=== PATIENT | male | born 1955 | race Caucasian/White ===

== ENCOUNTER → 2017-10-26 08:56 | Outpatient (CLI) | payer OTHER, SELFPAY ==
[2017-10-26 10:13] LABS: Absolute Lymphocyte Count 1.33 X10^3/ul (0.83-4.51); Absolute Neutrophil Count 2.1 X10^3/uL (2.0-7.7); Basophil# 0.03 X10^3/uL; Basophil% 0.7 % (0-1); Eosinophil# 0.17 X10^3/uL; Eosinophils% 4.2 % (0-5); Hemoglobin 14.2 g/dl (13.0-16.5); Lymphocyte # 1.33 X10^3/ul (4.0); Lymphocyte % 32.6 % (19-41); Mean Corp Hgb Conc 33.8 g/gl (32-36); Mean Corpuscular Volume 91.7 fL (80-94); Mean Platelet Vol. 9.5 fl (6.2-12.0); Monocyte# 0.46 X10^3/uL; Monocyte% 11.3 % (0-10); Neutrophil # 2.09 X10^3/uL (2.7-7.7); Neutrophil % 51.2 % (47-70); Platelet Count 297 K/mm3 (150-450); RBC Distribution Width CV 13.2 % (11.6-14.6); RBC Distribution Width SD 43.8 fl (35.1-43.9); Red Blood Count 4.58 M/mm3 (4.6-6.2); White Blood Count 4.1 K/mm3 (4.4-11.0)
[2017-10-26 10:15] LABS: POSITIVE COUNT NO; POSITIVE DIFFERENTIAL NO; POSITIVE MORPHOLOGY NO
[2017-10-26 10:37] LABS: Iron 100 ug/dL (65-175)
[2017-10-26 10:40] LABS: Ferritin 34 ng/mL (26-388)
== END ==
PROVIDERS: Family Provider Family Medicine; PCP Family Medicine; Visit Provider Internal Medicine Medical Oncology
DX: D50.9 Iron deficiency anemia, unspecified (principal)
CPT/HCPCS: 36415; 82728; 83540; 85025

== ENCOUNTER → 2018-03-25 08:56 | Outpatient (CLI) | payer OTHER, SELFPAY ==
[2018-03-25 12:57] LABS: Vitamin B12 365 pg/mL (211-911)
[2018-03-25 13:14] LABS: AST(SGOT) 26 U/L (15-37); Alanine Aminotransfer ALT/SGPT 33 U/L (16-61); Albumin, Serum 3.7 g/dL (3.2-5.0); Alkaline Phosphatase 58 U/L (45-117); Anion Gap 8 (5-15); BUN 20 mg/dL (7-18); BUN/Creat Ratio 24.8 RATIO (10-20); Chloride 102 mmol/L (98-107); Cholesterol 158 mg/dL (200); Creatinine, Serum 0.81 mg/dL (0.70-1.30); EST Glomerular Filtration Rate 103 mL/min (>60); Est Glom Filt Rate - Afr Amer 125 mL/min (>60); Globulin 3.7 g/dL (2.2-4.2); Glucose 88 mg/dL (74-106); High Density Lipoprotein 41 mg/dL; PSA,Total - Annual Screen 2.68 ng/mL (0.00-4.00); Potassium 3.7 mmol/L (3.5-5.1); Protein, Total 7.4 g/dL (6.4-8.2); Sodium Level 138 mmol/L (136-145); T4 Free Direct 0.96 ng/dL (0.76-1.46); Thyroid Stim Hormone (TSH) 9.84 uIU/mL (0.358-3.74); Triglycerides 82 mg/dL; Very Low Density Lipoprotein 16 mg/dL (5-40)
== END ==
PROVIDERS: Family Provider Family Medicine; PCP Family Medicine; Visit Provider Family Medicine
DX: Z00.01 Encounter for general adult medical examination with abnormal findings (principal); E03.9 Hypothyroidism, unspecified; G25.81 Restless legs syndrome; Z12.5 Encounter for screening for malignant neoplasm of prostate; Z51.81 Encounter for therapeutic drug level monitoring
CPT/HCPCS: 36415; 80053; 80061; 82607; 84153; 84439; 84443; G0103

== ENCOUNTER → 2018-06-23 10:38 | Outpatient (CLI) | payer OTHER, SELFPAY ==
[2018-06-23 16:00] LABS: Free T3 3.3 pg/mL (2.18-3.98); Thyroid Stim Hormone (TSH) 0.76 uIU/mL (0.358-3.74)
== END ==
PROVIDERS: Family Provider Family Medicine; PCP Family Medicine; Visit Provider Family Medicine
DX: E03.9 Hypothyroidism, unspecified (principal); E53.8 Deficiency of other specified B group vitamins; K90.0 Celiac disease; I10 Essential (primary) hypertension
CPT/HCPCS: 36415; 84439; 84443; 84481

== ENCOUNTER → 2018-08-23 09:05 | Outpatient (CLI) | payer OTHER, SELFPAY ==
[2018-08-23 10:17] LABS: Anion Gap 9 (5-15); BUN 19 mg/dL (7-18); BUN/Creat Ratio 20.2 RATIO (10-20); Calcium,Total 8.3 mg/dL (8.5-10.1); Chloride 101 mmol/L (98-107); Creatinine, Serum 0.94 mg/dL (0.70-1.30); EST Glomerular Filtration Rate 86 mL/min (>60); Est Glom Filt Rate - Afr Amer 104 mL/min (>60); Glucose 99 mg/dL (74-106); Potassium 3.7 mmol/L (3.5-5.1); Sodium Level 141 mmol/L (136-145)
== END ==
PROVIDERS: Family Provider Family Medicine; PCP Family Medicine; Referring Provider Family Medicine; Visit Provider Family Medicine
DX: Z51.81 Encounter for therapeutic drug level monitoring (principal)
CPT/HCPCS: 36415; 80048

== ENCOUNTER → 2019-03-23 | Outpatient (CLI) | payer OTHER, SELFPAY ==
[2017-11-01 08:29] VITALS: BMI 27.2
[2018-11-03 08:31] VITALS: BMI 26.8
[2019-03-23 12:57] LABS: AST(SGOT) 27 U/L (15-37); Alanine Aminotransfer ALT/SGPT 37 U/L (16-61); Albumin, Serum 3.7 g/dL (3.2-5.0); Alkaline Phosphatase 58 U/L (45-117); Anion Gap 5 (5-15); BUN 22 mg/dL (7-18); BUN/Creat Ratio 22.7 RATIO (10-20); Calcium,Total 8.7 mg/dL (8.5-10.1); Chloride 102 mmol/L (98-107); Cholesterol 184 mg/dL (200); Creatinine, Serum 0.97 mg/dL (0.70-1.30); EST Glomerular Filtration Rate 83 mL/min (>60); Est Glom Filt Rate - Afr Amer 100 mL/min (>60); Globulin 3.8 g/dL (2.2-4.2); Glucose 99 mg/dL (74-106); High Density Lipoprotein 41 mg/dL; PSA,Total - Annual Screen 2.79 ng/mL (0.00-4.00); Potassium 3.6 mmol/L (3.5-5.1); Protein, Total 7.5 g/dL (6.4-8.2); Sodium Level 137 mmol/L (136-145); Thyroid Stim Hormone (TSH) 1.57 uIU/mL (0.358-3.74); Triglycerides 94 mg/dL; Very Low Density Lipoprotein 19 mg/dL (5-40)
== END | disposition home or self-care (01) ==
LOC: LAB.FUTURE 09:27
PROVIDERS: Family Provider Family Medicine; PCP Family Medicine; Referring Provider Family Medicine; Visit Provider Family Medicine
DX: Z00.00 Encounter for general adult medical examination without abnormal findings (principal); E53.8 Deficiency of other specified B group vitamins; E03.9 Hypothyroidism, unspecified; Z12.5 Encounter for screening for malignant neoplasm of prostate
CPT/HCPCS: 36415; 80053; 80061; 84153; 84443; G0103

== ENCOUNTER → 2020-01-30 | Outpatient (CLI) | payer OTHER, SELFPAY ==
[2019-11-21 08:39] VITALS: BMI 27.7
[2020-01-30 12:53] LABS: Cholesterol 170 mg/dL (200); High Density Lipoprotein 35 mg/dL; T4 Free Direct 1.11 ng/dL (0.76-1.46); Triglycerides 150 mg/dL; Very Low Density Lipoprotein 30 mg/dL (5-40)
== END | disposition home or self-care (01) ==
LOC: BFHLAB 09:48
PROVIDERS: PCP Family Medicine; Visit Provider Family Medicine
DX: I10 Essential (primary) hypertension (principal); E03.9 Hypothyroidism, unspecified; Z12.5 Encounter for screening for malignant neoplasm of prostate
CPT/HCPCS: 36415; 80061; 84439; 84443

== ENCOUNTER → 2022-05-21 | Outpatient (CLI) | payer MEDICARE, BC, SELFPAY ==
[2022-05-21 12:09] LABS: Absolute Lymphocyte Count 1.01 X10^3/uL (0.83-4.51); Absolute Neutrophil Count 4.2 X10^3/uL (2.0-7.7); Basophil# 0.02 X10^3/uL; Basophil% 0.3 % (0-1); Eosinophil# 0.11 X10^3/uL; Eosinophils% 1.9 % (0-5); Hematocrit 41.8 % (40-54); Hemoglobin 13.8 g/dL (13.0-16.5); Lymphocyte # 1.01 X10^3/ul (0.83-4.51); Lymphocyte % 17.1 % (19-41); Mean Corpuscular Hgb 31.9 pg (27.0-32.0); Mean Corpuscular Volume 96.5 fL (80-94); Mean Platelet Vol. 9.8 fl (6.2-12.0); Monocyte# 0.57 X10^3/uL; Monocyte% 9.6 % (0-10); NRBC Flagged by Analyzer 0 % (0-5); Neutrophil # 4.18 X10^3/uL (2.7-7.7); Neutrophil % 70.8 % (47-70); Platelet Count 321 K/mm3 (150-450); RBC Distribution Width CV 13.1 % (11.6-14.6); RBC Distribution Width SD 46.5 fl (35.1-43.9); Red Blood Count 4.33 M/mm3 (4.6-6.2); White Blood Count 5.9 K/mm3 (4.4-11.0)
[2022-05-21 12:28] LABS: Vitamin B12 673 pg/mL (211-911)
[2022-05-21 12:33] LABS: AST(SGOT) 27 U/L (15-37); Alanine Aminotransfer ALT/SGPT 39 U/L (16-61); Albumin, Serum 3.7 g/dL (3.2-5.0); Alkaline Phosphatase 70 U/L (45-117); Anion Gap 4 (5-15); BUN 23 mg/dL (7-18); BUN/Creat Ratio 20.5 RATIO (10-20); Calcium,Total 8.1 mg/dL (8.5-10.1); Chloride 103 mmol/L (98-107); Cholesterol 190 mg/dL (200); Creatinine, Serum 1.12 mg/dL (0.70-1.30); EST Glomerular Filtration Rate 70 mL/min (>60); Est Glom Filt Rate - Afr Amer 84 mL/min (>60); Ferritin 56 ng/mL (26-388); Globulin 3.7 g/dL (2.2-4.2); Glucose 114 mg/dL (74-106); High Density Lipoprotein 40 mg/dL; Iron 74 ug/dL (65-175); PSA,Total - Annual Screen 4.21 ng/mL (0.00-4.00); Potassium 3.8 mmol/L (3.5-5.1); Protein, Total 7.4 g/dL (6.4-8.2); Sodium Level 137 mmol/L (136-145); Thyroid Stim Hormone (TSH) 4.08 uIU/mL (0.358-3.74); Triglycerides 115 mg/dL; Very Low Density Lipoprotein 23 mg/dL (5-40)
== END | disposition home or self-care (01) ==
LOC: BFHLAB 09:43
PROVIDERS: PCP Family Medicine; Visit Provider Family Medicine
DX: Z00.00 Encounter for general adult medical examination without abnormal findings (principal); Z12.5 Encounter for screening for malignant neoplasm of prostate; E03.9 Hypothyroidism, unspecified; D50.9 Iron deficiency anemia, unspecified; E53.8 Deficiency of other specified B group vitamins
CPT/HCPCS: 36415; 80053; 80061; 82607; 82728; 83540; 84153; 84443; 85025; G0103

== ENCOUNTER → 2022-11-16 | Outpatient (CLI) | payer MEDICARE, BC, SELFPAY ==
[2022-11-16 12:16] LABS: PSA,Total- Diagnostic 4.32 ng/mL (0.0-4.0)
== END | disposition home or self-care (01) ==
LOC: BFHLAB 10:54
PROVIDERS: PCP Family Medicine; Referring Provider Family Medicine; Visit Provider Family Medicine
DX: R97.20 Elevated prostate specific antigen [PSA] (principal)
CPT/HCPCS: 36415; 84153

== ENCOUNTER → 2024-05-23 | Outpatient (CLI) | payer MEDICARE, BC, SELFPAY ==
[2024-05-23 12:15] LABS: Absolute Lymphocyte Count 1.36 X10^3/uL (0.83-4.51); Absolute Neutrophil Count 4.8 X10^3/uL (2.0-7.7); Basophil# 0.04 X10^3/uL; Basophil% 0.6 % (0-1); Eosinophil# 0.27 X10^3/uL; Eosinophils% 3.7 % (0-5); Hematocrit 39.3 % (40-54); Hemoglobin 13.4 g/dL (13.0-16.5); Lymphocyte # 1.36 X10^3/ul (0.83-4.51); Lymphocyte % 18.8 % (19-41); Mean Corp Hgb Conc 34.1 g/dL (32-36); Mean Corpuscular Hgb 32.3 pg (27.0-32.0); Mean Corpuscular Volume 94.7 fL (80-94); Mean Platelet Vol. 9.6 fl (6.2-12.0); Monocyte# 0.68 X10^3/uL; Monocyte% 9.4 % (0-10); NRBC Flagged by Analyzer 0 % (0-5); Neutrophil # 4.83 X10^3/uL (2.7-7.7); Neutrophil % 66.9 % (47-70); Platelet Count 396 K/mm3 (150-450); RBC Distribution Width CV 12.4 % (11.6-14.6); RBC Distribution Width SD 43.4 fl (35.1-43.9); Red Blood Count 4.15 M/mm3 (4.6-6.2); White Blood Count 7.2 K/mm3 (4.4-11.0)
[2024-05-23 12:57] LABS: Vitamin B12 1028 pg/mL (211-911)
[2024-05-23 13:41] LABS: ALB/GLOB Ratio 0.7 RATIO (0.9-2.4); AST(SGOT) 27 U/L (15-37); Alanine Aminotransfer ALT/SGPT 35 U/L (16-61); Albumin, Serum 3.3 g/dL (3.2-5.0); Alkaline Phosphatase 88 U/L (45-117); Anion Gap 7 (5-15); BUN 26 mg/dL (7-18); BUN/Creat Ratio 26.4 RATIO (10-20); Calcium,Total 8.4 mg/dL (8.5-10.1); Chloride 98 mmol/L (98-107); Cholesterol 144 mg/dL (200); Creatinine, Serum 0.99 mg/dL (0.70-1.30); EST Glomerular Filtration Rate 80 mL/min (>60); Est Glom Filt Rate - Afr Amer 97 mL/min (>60); Ferritin 230 ng/mL (26-388); Globulin 4.5 g/dL (2.2-4.2); Glucose 106 mg/dL (74-106); High Density Lipoprotein 30 mg/dL; Iron 46 ug/dL (65-175); PSA,Total - Annual Screen 3.83 ng/mL (0.00-4.00); Potassium 3.6 mmol/L (3.5-5.1); Protein, Total 7.8 g/dL (6.4-8.2); Sodium Level 133 mmol/L (136-145); Triglycerides 86 mg/dL; Very Low Density Lipoprotein 17 mg/dL (5-40)
== END | disposition home or self-care (01) ==
LOC: BFHLAB 10:17
PROVIDERS: PCP Family Medicine; Referring Provider Family Medicine; Visit Provider Family Medicine
DX: Z12.5 Encounter for screening for malignant neoplasm of prostate (principal); E03.9 Hypothyroidism, unspecified; D50.9 Iron deficiency anemia, unspecified; K90.0 Celiac disease; I10 Essential (primary) hypertension; N52.9 Male erectile dysfunction, unspecified
CPT/HCPCS: 36415; 80053; 80061; 82607; 82728; 83540; 84153; 84403; 84443; 85025; G0103

== ENCOUNTER 2024-05-29 07:33 | Day surgery (SDC) | payer MEDICARE, BC, SELFPAY ==
[2024-05-29 07:50] VITALS: BP 138/83; PULSE 68; RESP 16; TEMP 36.3; O2SAT 99; BMI 27.8
--- NOTE | 2024-05-29 08:01 | HP.PCM_ITS ---
[facility] - General General Date of Service: 05/29/24 HPI Narrative REFUGIO OCAMPO, is a 68 M who presents for a screening colonoscopy. Patient last colonoscopy was in November [address] Beck negative per patient. Patient denies any family history of colon cancer. Patient has bowel moods daily denies any blood. Patient denies any chronic abdominal pain/nausea/vomiting/reflux. [facility] Medical History (Updated 05/25/24 @ 15:47 by Priyanka Rai) Alcohol use Dietary restriction Former smoker Leg cramps History of stress test Diaz esophagus Hypertension Insomnia Restless leg syndrome Hypothyroid Anemia History of celiac disease History of hemorrhoids Home Medications ?Medication ?Instructions ?Recorded ?Last Taken ?Type pramipexole 1.5 mg tablet 3 mg PO QHS RLS 11/27/13 Unknown History duloxetine 20 mg capsule,delayed 30 mg PO DAILY 09/08/16 Unknown History release folic acid 1 mg tablet 1 mg PO DAILY@0800 90 days #90 tabs 09/30/17 Unknown Rx chlorthalidone 25 mg tablet 25 mg PO DAILY 11/03/18 Unknown History cyanocobalamin (vitamin B-12) 1,000 mcg PO DAILY 11/03/18 Unknown History 1,000 mcg tablet ferrous gluconate 324 mg (37.5 mg 324 mg PO DAILY 11/03/18 Unknown History iron) tablet lisinopril 20 mg tablet 20 mg PO DAILY 11/03/18 Unknown History metoprolol succinate 50 mg capsule 50 mg PO DAILY 11/03/18 Unknown History sprinkle, ext. release 24 hr levothyroxine 200 mcg tablet 300 mcg PO DAILY 05/24/24 Unknown History Allergy/AdvReac Type Severity Reaction Status Date / Time No Known Allergies Allergy Verified 05/29/24 07:50 Family History Mother Hypertension Heart disease Father Prostate cancer Heart disease Surgical History (Updated 05/25/24 @ 15:47 by Priyanka Rai) History of esophagogastroduodenoscopy (EGD) Hx of colonoscopy Social History (Updated 05/24/24 @ 14:56 by Alessia Jaquez) household members: spouse current occupational status: retired Smoking Status: Former smoker alcohol intake: current alcohol intake frequency: holidays/special occasions only Alcohol type: beer substance use type: does not use Past Medical/Surgical History Planned Operation Planned Operative Procedure(s): CSCOPE OA Previous Hospitalizations/Surgeries HX Hospitalizations: No Any Problems With Anesthesia: No You/Your Family Experience Fever (Hyperthermia) With Anes: No Cholinesterase deficiency: No Cardiovascular Hx Heart Attack: No Hx Hypertension: Yes (CONTROLLED WITH MEDS) Respiratory Hx Chronic Obstructive Pulmonary Disease (COPD): No Hx Sleep Apnea: No Hx Respiratory Tract Infection/Cold (presently): Yes (COUGH/ON ANTIBIOTIC/IMPROVING) Do You Snore Loudly (louder than talking or can be heard): Yes Do You Often Feel Tired/ Fatigued/ Sleepy Dring Daytime?: No Has Anyone Observed You Stop Breathing During Sleep?: No Result (for STOP score): Positive Smoking Status: Former smoker Gastrointestinal Special diet followed at home: Yes (Gluten Free x1 wk) Neurological Hx Seizures: No Does patient have nerve stimulator: No Reproduction : No Genitourinary Hx Renal Disease: No Endocrine Hx Diabetes: No Miscellaneous Hx Cancer: No Recent Exposure to Contagious Disease: No Allergies No Known Allergies Allergy (Verified 05/29/24 07:50) Discharge Is Pt Admitted From a Detention, or a Senior Living: No After D/C, Where Do you Plan to Go: Return Home Vital Signs Vital Signs Vital Signs: 05/29/24 07:50 05/29/24 07:50 Temperature 97.3 F L Temperature Source Temporal Pulse Rate 68 Respiratory Rate 16 Respiratory Pattern Normal Blood Pressure 138/83 H Blood Pressure Mean 101 Blood Pressure Source Monitor Blood Pressure Position Sitting Blood Pressure Location Right Arm Pulse Ox 99 Oxygen Delivery Method Room Air Weight Weight: 194 lb 0.108 oz Body Mass Index (BMI) 27.8 Physical Exam Const alert, oriented x3 and no apparent distress HEENT normocephalic and head/scalp atraumatic Resp normal respiratory effort Cardio regular rate GI soft to palpation and non-tender; Negative for non-distended Palpation: Negative for guarding Extremity no clubbing, cyanosis or edema Skin no rashes or lesions noted Neuro CN's II-XII intact bilaterally Psych mental status grossly normal Assessment & Plan Assessment/Plan (1) Encounter for screening for malignant neoplasm of colon: Surgery Risks - Colonoscopy I discussed with the patient the risks of the procedure: Yes Risks Include but are not Limited To: Risks include but are not limited to: Bleeding, perforation requiring further surgery, inability to complete colonoscopy requiring barium enema.
[2024-05-29 08:20] VITALS: BP 138/83; PULSE 68; RESP 16; TEMP 36.3; O2SAT 99
--- NOTE | 2024-05-29 08:20 | PCM.PRE.AN2 ---
ASA Classification* ASA Classification ASA Classification: 2 Assessment & Plan Anesthesia* Anesthesia Assessment Anesthesia Assessment: Discussed sedation and/or anesthesia options, risks, benefits, and alternatives with patient/parents/legal guardian/POA. Questions invited. The patient/parents/legal guardian/POA seems to understand and agrees to proceed with anesthesia plan. Reviewed the physical assessment, medical history, allergy history and patient home medications list prior to surgery/procedure/anesthetic and documented any changes. Performed airway and anesthesia risk assessments. Anesthesia Type Anesthesia Type: MAC Anesthesia Focused Assessment* Temperature: 97.3 F Pulse Rate: 68 Blood Pressure: 138/83 Respiratory Rate: 16 Pulse Ox: 99 Airway Assessment Mouth opens: >3 cm Mallampati Score: II Focused Labs Anesthesia Preop lab: CBC WBC 7.2 K/mm3 (4.4-11.0) 05/23/24 10:20 RBC 4.15 M/mm3 (4.6-6.2) L 05/23/24 10:20 Hgb 13.4 g/dL (13.0-16.5) 05/23/24 10:20 Hct 39.3 % (40-54) L 05/23/24 10:20 Plt Count 396 K/mm3 (150-450) 05/23/24 10:20 CHEMISTRY Potassium 3.6 mmol/L (3.5-5.1) 05/23/24 10:20 Sodium 133 mmol/L (136-145) L 05/23/24 10:20 Magnesium 2.1 mg/dL (1.6-2.6) 11/21/19 09:13 Phosphorus 2.6 mg/dL (2.5-4.9) 11/21/19 09:13 BUN 26 mg/dL (7-18) H 05/23/24 10:20 Creatinine 0.99 mg/dL (0.70-1.30) 05/23/24 10:20 Glucose 106 mg/dL (74-106) 05/23/24 10:20 TSH 8.530 uIU/mL (0.358-3.740) H 05/23/24 10:20 COAG Pre-Assessment Diagnosis/Proposed Procedure Planned Operative Procedure(s): CSCOPE OA Anesthesia History Anesthesia History - information resource consultant: Anesthesia History - information resource consultant Hx Hospitalization No 05/29/24 08:02 Any Problems With Anesthesia No 05/29/24 08:02 Cholinesterase deficiency No 05/29/24 08:02 You/Your Family Experience No 05/29/24 08:02 fever (hyperthermia) with Relationship Recent Exposure to Contagious No 05/29/24 08:02 Disease Does patient have nerve No 05/29/24 08:02 stimulator Patient instructed to have device shut off --Does patient have Pacemaker No 05/29/24 07:50 or ICD? When Was Last Pacemaker Check QUESTION #4 FULL TEXT: You/Your Family Experience fever (hyperthermia) with Anesthesia Last Oral Intake Last Oral intake: Last Oral Intake NPO since 23:00 05/29/24 07:50 Meds taken in AM with sips of No 05/29/24 07:50 water? Meds patient instructed to take am of surgery PONV PONV - information resource consultant: PONV - information resource consultant Female No 05/25/24 15:39 HX of Motion Sickness No 05/25/24 15:39 HX of N/V After Surgery No 05/25/24 15:39 Non-Smoker Yes 05/25/24 15:39 Duration of Surgery greater No 05/25/24 15:39 than 60 minutes Number of Risk Factors 1 05/25/24 15:39 PONV Score Low Risk 05/25/24 15:39 Height & Weight Height & Weight: Anesthesia: Height & Weight Height 5 ft 10 in 05/29/24 07:50 Weight: 88 kg 05/29/24 07:50 Body Mass Index (BMI) 27.8 05/29/24 07:50 Respiratory Assessment Respiratory Assessment - information resource consultant: Respiratory Tract Infection Hx - information resource consultant Hx Respiratory Tract Infection Yes: COUGH/ON ANTIBIOTIC/ 05/29/24 08:02 IMPROVING STOP Sleep Apnea STOP Sleep Apnea - information resource consultant: STOP Sleep Apnea - information resource consultant Hx Hypertension Yes: CONTROLLED WITH MEDS 05/29/24 08:02 Hx Sleep Apnea No 05/29/24 08:02 CPAP BIPAP Do you snore loudly (louder Yes 05/29/24 08:02 than talking or can be heard Do you often feel tired/ No 05/29/24 08:02 fatigued/ sleepy during daytime? Has anyone observed you stop No 05/29/24 08:02 breathing during sleep? STOP Results Positive 05/29/24 08:02 QUESTION #5 FULL TEXT : Do you snore loudly (louder than talking or can be heard through closed doors)? Tobacco Use History Tobacco Use History - information resource consultant: Tobacco Use History - information resource consultant Tobacco Use Smoking Status Former smoker 05/29/24 08:02 Hx Tobacco Use Yes 05/25/24 15:39 Years Smoking Packs Smoked per Day Smoking Cessation Date was Yes - quit smoking within 15 05/25/24 15:39 within the last 15 years years Hx Smoking Cessation Date 06/14/23 05/25/24 15:39 Hx Smoking Cessation Counseling Hematologic Medial History Hematologic Hx - information resource consultant: Hematologic Medical Hx - framer Hx of Blood Transfusion No 05/25/24 15:39 Hx of Transfusion in last 3 No 05/25/24 15:39 Months Date of Last Transfusion (if within last 3 months) Ever experience any problems No 05/25/24 15:39 with transfusion(s)? Specify any problems Hx of Preganancy in last 3 N/A 05/25/24 15:39 Months Nurse Filling Out Transfusion DSCHRIBER 05/25/24 15:39 & Questions: Date: 05/25/24 05/25/24 15:39 Time: 15:41 05/25/24 15:39 Patient unable to answer at this time (ie. confused, unrespo /Reproduction History /Reproductive History - information resource consultant: /Reproductive Hx- information resource consultant Hx Now No 05/29/24 08:02 Gestational Age (in weeks): EDC: Hx Hx Para Hx Section SAB No 05/25/24 15:39 PFSH Medical History Alcohol use Dietary restriction Former smoker Leg cramps History of stress test Diaz esophagus Hypertension Insomnia Restless leg syndrome Hypothyroid Anemia History of celiac disease History of hemorrhoids Home Medications ?Medication ?Instructions ?Recorded ?Last Taken ?Type pramipexole 1.5 mg tablet 3 mg PO QHS RLS 11/27/13 Unknown History duloxetine 20 mg capsule,delayed 30 mg PO DAILY 09/08/16 Unknown History release folic acid 1 mg tablet 1 mg PO DAILY@0800 90 days #90 tabs 09/30/17 Unknown Rx chlorthalidone 25 mg tablet 25 mg PO DAILY 05/23/19 Unknown History cyanocobalamin (vitamin B-12) 1,000 mcg PO DAILY 11/03/18 Unknown History 1,000 mcg tablet ferrous gluconate 324 mg (37.5 mg 324 mg PO DAILY 11/03/18 Unknown History iron) tablet lisinopril 20 mg tablet 20 mg PO DAILY 11/03/18 Unknown History metoprolol succinate 50 mg capsule 50 mg PO DAILY 11/03/18 Unknown History sprinkle, ext. release 24 hr levothyroxine 200 mcg tablet 300 mcg PO DAILY 05/24/24 Unknown History Allergy/AdvReac Type Severity Reaction Status Date / Time No Known Allergies Allergy Verified 05/29/24 07:50 Family History Mother Hypertension Heart disease Father Prostate cancer Heart disease Surgical History History of esophagogastroduodenoscopy (EGD) Hx of colonoscopy Social History household members: spouse current occupational status: retired Smoking Status: Former smoker alcohol intake: current alcohol intake frequency: holidays/special occasions only Alcohol type: beer substance use type: does not use Review of Systems (Anesthesia) ROS Narrative System reviewed and no additional complaints, except as documented.
[2024-05-29 09:45] VITALS: BP 138/83; BP 95/56; PULSE 73; RESP 16; TEMP 36.1; O2SAT 96
--- NOTE | 2024-05-29 09:49 | OP.COLON_ITS ---
Patient Name: Jeffrey Menjivar Procedure Date: 05/29/2024 9:12 AM Date of : 1955 Age: 68 Procedure: Colonoscopy Indications: Screening for colorectal malignant neoplasm Providers: Kate Del Angel MD Referring MD: Newton Lanza Medicines: Monitored Anesthesia Care Patient Profile: This is a 68 year old male. Last Colonoscopy: 2013. Complications: No immediate complications. Procedure: Pre-Anesthesia Assessment: - Prior to the procedure, a History and Physical was performed, and patient medications and allergies were reviewed. The patient's tolerance of previous anesthesia was also reviewed. The risks and benefits of the procedure and the sedation options and risks were discussed with the patient. All questions were answered, and informed consent was obtained. Prior Anticoagulants: The patient has taken no anticoagulant or antiplatelet agents. ASA Grade Assessment: Per anesthesia. After reviewing the risks and benefits, the patient was deemed in satisfactory condition to undergo the procedure. After I obtained informed consent, the scope was passed under direct vision. Throughout the procedure, the patient's blood pressure, pulse, and oxygen saturations were monitored continuously. The colonoscope was introduced through the anus and advanced to the cecum, identified by the appendiceal orifice, ileocecal valve and palpation. The colonoscopy was performed without difficulty. The patient tolerated the procedure well. The quality of the bowel preparation was good. Scope In: 9:20:25 AM Scope Withdrawal Time 0 hours 11 minutes 21 seconds Scope Out: 9:39:18 AM Total Procedure Duration Time 0 hours 18 minutes 53 seconds Findings: The perianal and digital rectal examinations were normal. The entire examined colon appeared normal on direct and retroflexion views. Impression: - The entire examined colon is normal on direct and retroflexion views. - No specimens collected. Recommendation: - Discharge patient to home. - Resume previous diet. - Continue present medications. - Repeat colonoscopy in 10 years for screening purposes. - depending on overall health at time of possible repeat Procedure Code(s): --- Professional --- G0121, PT, Colorectal cancer screening; colonoscopy on individual not meeting criteria for high risk Diagnosis Code(s): --- Professional --- Z12.11, Encounter for screening for malignant neoplasm of colon CPT copyright 2021 [employer]. All rights reserved. The codes documented in this report are preliminary and upon ship harbor pilot review may be revised to meet current compliance requirements. MD Kate Martin MD 05/29/2024 9:48:48 AM This report has been signed electronically. Number of Addenda: 0 Note Initiated On: 05/29/2024 9:12 AM
--- NOTE | 2024-05-29 09:49 | OP.CCLET_ITS ---
05/29/2024 Newton Lanza [address] [place] [address] Re : Colonoscopy procedure for Jeffrey Mezabaugh Dear Dr. Lanza This procedure was performed on Wednesday, May 29, 2024. My impressions and recommendations are as follows: Impressions : - The entire examined colon is normal on direct and retroflexion views. - No specimens collected. Recommendations : - Discharge patient to home. - Resume previous diet. - Continue present medications. - Repeat colonoscopy in 10 years for screening purposes. - depending on overall health at time of possible repeat My findings are described in the full procedure note, which is enclosed. If I can be of further assistance, please feel free to contact me at Doctor phone number(s): , Work: . Sincerely, MD Kate Martin MD 05/29/2024 9:48:48 AM This report has been signed electronically.
--- NOTE | 2024-05-29 09:49 | PCM.POST.ANE ---
Anesthesia: Postop Eval I Current Vital Signs Temperature: 97 F Pulse Rate: 67 Blood Pressure: 70/50 Respiratory Rate: 16 Pulse Ox: 97 Oxygen Delivery Method: Room Air Assessment Airway patent: Yes Spontaneous unlabored respirations: Yes Mental status: Awake nausea: No Vomiting: No Anesthesia Complication: No Fluid Hydration Crystalloid volume administer (ml): 50 Total IV fluid infused: 50 Progress Note Anesthesia document: Postop Eval 1 completed: Yes
[2024-05-29 09:50] VITALS: BP 138/83; BP 70/50; BP 97/52; PULSE 64; PULSE 67; RESP 16; TEMP 36.1; O2SAT 97
[2024-05-29 10:00] VITALS: BP 115/71; BP 138/83; PULSE 64; RESP 16; TEMP 36.8
--- NOTE | 2024-05-29 10:09 | PCM.POSTANE2 ---
Anesthesia Postop Eval I Sum Postop Eval Completion status Anesthesia document: Postop Eval 1 completed: Yes Anesthesia Postop Eval I Summary Anesthesia Postop Eval I Summary: Anesthesia Postop Eval I: Assessment Summary Airway patent Yes 05/29/24 09:50 [email or web address] Spontaneous unlabored Yes 05/29/24 09:50 [email or web address] respirations Mental status Awake 05/29/24 09:50 [email or web address] nausea No 05/29/24 09:50 [email or web address] Vomiting No 05/29/24 09:50 [email or web address] Anesthesia Postop Eval I: Fluid Summary Crystalloid volume administer 50 05/29/24 09:50 [email or web address] (ml) Colloids volume administered ( ml) Blood Product volume administered (ml) Total IV fluid infused 50 05/29/24 09:50 [email or web address] Anesthesia Postop Eval I: Summary Notes Anesthesia Complication No 05/29/24 09:50 [email or web address] Anesthesia Complication Comment: Post-operative progress note Anesthesia: Postop Eval II Evaluation Mental status: Awake Pain Level: 0 nausea: No Vomiting: No
[2024-05-29 10:17] VITALS: BP 138/83
== END 2024-05-29 10:29 | disposition home or self-care (01) ==
LOC: EN 07:36 → AC 07:44
PROVIDERS: PCP Family Medicine; Referring Provider Family Medicine; Visit Provider Surgery
PROC: 0DJD8ZZ Inspection of Lower Intestinal Tract, Via Natural or Artificial Opening Endoscopic (ICD-10-PCS; CPT 45378; principal; 2024-05-29 08:55)
DX: Z12.11 Encounter for screening for malignant neoplasm of colon (principal); K22.710 Barrett's esophagus with low grade dysplasia; Z87.891 Personal history of nicotine dependence; I10 Essential (primary) hypertension; Z79.890 Hormone replacement therapy; E03.9 Hypothyroidism, unspecified
CPT/HCPCS: G0121; A4216; J2405

== ENCOUNTER 2024-06-19 08:26 | Day surgery (SDC) | payer MEDICARE, BC, SELFPAY ==
[2024-06-19] VITALS (8 sets, daily range): BP systolic 106–129; BP diastolic 69–77; PULSE 55–62; RESP 16; TEMP 36.2–36.6; O2SAT 93–97; BMI 29.3
--- NOTE | 2024-06-19 08:34 | PCM.HP.BLA ---
History and Physical Date of Admission: 06/19/24 05/29/24 0801 MR#: [id number] Acct: [id number] Name: REFUGIO OCAMPO Rep #: [id number] : 1955 68 From: Kate Del Angel MD PCP: Dr. Newton Lanza, DO Status: [facility] Location: [place] [address] HPI - General General Date of Service: 05/29/24 HPI Narrative REFUGIO OCAMPO, is a 68 M who presents for a screening colonoscopy. Patient last colonoscopy was in November [address] Beck negative per patient. Patient denies any family history of colon cancer. Patient has bowel moods daily denies any blood. Patient denies any chronic abdominal pain/nausea/vomiting/reflux. [facility] Medical History (Updated 05/25/24 @ 15:47 by Priyanka Rai) Alcohol use Dietary restriction Former smoker Leg cramps History of stress test Diaz esophagus Hypertension Insomnia Restless leg syndrome Hypothyroid Anemia History of celiac disease History of hemorrhoids Home Medications ?Medication ?Instructions ?Recorded ?Last Taken ?Type pramipexole 1.5 mg tablet 3 mg PO QHS RLS 11/27/13 Unknown History duloxetine 20 mg capsule,delayed 30 mg PO DAILY 09/08/16 Unknown History release folic acid 1 mg tablet 1 mg PO DAILY@0800 90 days #90 tabs 09/30/17 Unknown Rx chlorthalidone 25 mg tablet 25 mg PO DAILY 11/03/18 Unknown History cyanocobalamin (vitamin B-12) 1,000 mcg PO DAILY 11/03/18 Unknown History 1,000 mcg tablet ferrous gluconate 324 mg (37.5 mg 324 mg PO DAILY 11/03/18 Unknown History iron) tablet lisinopril 20 mg tablet 20 mg PO DAILY 11/03/18 Unknown History metoprolol succinate 50 mg capsule 50 mg PO DAILY 11/03/18 Unknown History sprinkle, ext. release 24 hr levothyroxine 200 mcg tablet 300 mcg PO DAILY 05/24/24 Unknown History Allergy/AdvReac Type Severity Reaction Status Date / Time No Known Allergies Allergy Verified 05/29/24 07:50 Family History Mother Hypertension Heart diseaseFather Prostate cancer Heart disease Surgical History (Updated 05/25/24 @ 15:47 by Priyanka Rai) History of esophagogastroduodenoscopy (EGD) Hx of colonoscopy Social History (Updated 05/24/24 @ 14:56 by Alessia Jaquez) household members: spouse current occupational status: retired Smoking Status: Former smoker alcohol intake: current alcohol intake frequency: holidays/special occasions only Alcohol type: beer substance use type: does not use Past Medical/Surgical History Planned Operation Planned Operative Procedure(s): CSCOPE OA Previous Hospitalizations/Surgeries HX Hospitalizations: No Any Problems With Anesthesia: No You/Your Family Experience Fever (Hyperthermia) With Anes: No Cholinesterase deficiency: No Cardiovascular Hx Heart Attack: No Hx Hypertension: Yes (CONTROLLED WITH MEDS) Respiratory Hx Chronic Obstructive Pulmonary Disease (COPD): No Hx Sleep Apnea: No Hx Respiratory Tract Infection/Cold (presently): Yes (COUGH/ON ANTIBIOTIC/IMPROVING) Do You Snore Loudly (louder than talking or can be heard): Yes Do You Often Feel Tired/ Fatigued/ Sleepy Dring Daytime?: No Has Anyone Observed You Stop Breathing During Sleep?: No Result (for STOP score): Positive Smoking Status: Former smoker Gastrointestinal Special diet followed at home: Yes (Gluten Free x1 wk) Neurological Hx Seizures: No Does patient have nerve stimulator: No Reproduction : No Genitourinary Hx Renal Disease: No Endocrine Hx Diabetes: No Miscellaneous Hx Cancer: No Recent Exposure to Contagious Disease: No Allergies No Known Allergies Allergy (Verified 05/29/24 07:50) Discharge Is Pt Admitted From a [facility], or a Alf: No After D/C, Where Do you Plan to Go: Return Home Vital Signs Vital Signs Vital Signs: 05/29/2407:50 05/29/2407:50 Temperature 97.3 F L Temperature Source Temporal Pulse Rate 68 Respiratory Rate 16 Respiratory Pattern Normal Blood Pressure 138/83 H Blood Pressure Mean 101 Blood Pressure Source Monitor Blood Pressure Position Sitting Blood Pressure Location Right Arm Pulse Ox 99 Oxygen Delivery Method Room Air Weight Weight: 194 lb 0.108 oz Body Mass Index (BMI) 27.8 Physical Exam Const alert, oriented x3 and no apparent distress HEENT normocephalic and head/scalp atraumatic Resp normal respiratory effort Cardio regular rate GI soft to palpation and non-tender; Negative for non-distended Palpation: Negative for guarding Extremity no clubbing, cyanosis or edema Skin no rashes or lesions noted Neuro CN's II-XII intact bilaterally Psych mental status grossly normal Assessment & Plan Assessment/Plan (1) Encounter for screening for malignant neoplasm of colon: Surgery Risks - Colonoscopy I discussed with the patient the risks of the procedure: Yes Risks Include but are not Limited To: Risks include but are not limited to: Bleeding, perforation requiring further surgery, inability to complete colonoscopy requiring barium enema. 05/29/24 0802 <Electronically signed by Kate Del Angel MD> Cosigner Signature (if applicable): CC: Dr. Newton Lanza, DO; Dr. Kate Del Angel MD~ Signed ADDENDUM by Dr. 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 In 2013 patient an EGD with Dr. Beck did show Diaz's esophagus as well as low-grade dysplasia. Encourage patient to get an EGD. Patient told denies any symptoms of reflux or heartburn. And is has not been on medication for this.
--- NOTE | 2024-06-19 09:09 | PRE.ANES_ITS ---
ASA Classification* ASA Classification ASA Classification: 2 Assessment & Plan Anesthesia* Anesthesia Assessment Anesthesia Assessment: Discussed sedation and/or anesthesia options, risks, benefits, and alternatives with patient/parents/legal guardian/POA. Questions invited. The patient/parents/legal guardian/POA seems to understand and agrees to proceed with anesthesia plan. Reviewed the physical assessment, medical history, allergy history and patient home medications list prior to surgery/procedure/anesthetic and documented any changes. Performed airway and anesthesia risk assessments. Anesthesia Type Anesthesia Type: MAC Anesthesia Focused Assessment* Temperature: 98 F Pulse Rate: 62 Blood Pressure: 129/77 Respiratory Rate: 16 Pulse Ox: 97 Airway Assessment Mouth opens: >3 cm Mallampati Score: II Focused Labs Anesthesia Preop lab: CBC WBC 7.2 K/mm3 (4.4-11.0) 05/23/24 10:20 RBC 4.15 M/mm3 (4.6-6.2) L 05/23/24 10:20 Hgb 13.4 g/dL (13.0-16.5) 05/23/24 10:20 Hct 39.3 % (40-54) L 05/23/24 10:20 Plt Count 396 K/mm3 (150-450) 05/23/24 10:20 CHEMISTRY Potassium 3.6 mmol/L (3.5-5.1) 05/23/24 10:20 Sodium 133 mmol/L (136-145) L 05/23/24 10:20 Magnesium 2.1 mg/dL (1.6-2.6) 11/21/19 09:13 Phosphorus 2.6 mg/dL (2.5-4.9) 11/21/19 09:13 BUN 26 mg/dL (7-18) H 05/23/24 10:20 Creatinine 0.99 mg/dL (0.70-1.30) 05/23/24 10:20 Glucose 106 mg/dL (74-106) 05/23/24 10:20 TSH 8.530 uIU/mL (0.358-3.740) H 05/23/24 10:20 COAG Pre-Assessment Diagnosis/Proposed Procedure Planned Operative Procedure(s): EGD Anesthesia History 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 When Was Last Pacemaker Check QUESTION #4 FULL TEXT: You/Your Family Experience fever (hyperthermia) with Anesthesia Last Oral Intake Last Oral intake: Last Oral Intake NPO since 22:00 06/19/24 08:49 Meds taken in AM with sips of No 06/19/24 08:49 water? Meds patient instructed to take am of surgery PONV PONV - accounts collector: PONV - accounts collector Female No 06/15/24 09:50 HX of Motion Sickness No 06/15/24 09:50 HX of N/V After Surgery No 06/15/24 09:50 Non-Smoker Yes 06/15/24 09:50 Duration of Surgery greater No 06/15/24 09:50 than 60 minutes Number of Risk Factors 1 06/15/24 09:50 PONV Score Low Risk 06/15/24 09:50 Height & Weight Height & Weight: Anesthesia: Height & Weight Height 5 ft 10 in 06/19/24 08:49 Weight: 92.8 kg 06/19/24 08:49 Body Mass Index (BMI) 29.3 06/19/24 08:49 Respiratory Assessment Respiratory Assessment - accounts collector: Respiratory Tract Infection Hx - accounts collector Hx Respiratory Tract Infection No 06/15/24 09:50 STOP Sleep Apnea STOP Sleep Apnea - accounts collector: STOP Sleep Apnea - accounts collector Hx Hypertension Yes: CONTROLLED WITH MEDS 06/15/24 09:50 Hx Sleep Apnea No 06/15/24 09:50 CPAP BIPAP Do you snore loudly (louder No 06/15/24 09:50 than talking or can be heard Do you often feel tired/ No 06/15/24 09:50 fatigued/ sleepy during daytime? Has anyone observed you stop No 06/15/24 09:50 breathing during sleep? STOP Results Negative 06/15/24 09:50 QUESTION #5 FULL TEXT : Do you snore loudly (louder than talking or can be heard through closed doors)? 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 Specify any problems Hx of Preganancy in last 3 N/A 06/15/24 09:50 Months Nurse Filling Out Transfusion [email or web address] 06/15/24 09:50 & Questions: Date: 06/15/24 06/15/24 09:50 Time: 09:51 06/15/24 09:50 Patient unable to answer at this time (ie. confused, unrespo /Reproduction History /Reproductive History - accounts collector: /Reproductive Hx- accounts collector Hx Now Gestational Age (in weeks): EDC: Hx Hx Para Hx Section SAB No 06/15/24 09:50 PFSH Medical History Alcohol use Dietary restriction Former smoker Leg cramps History of stress test Diaz esophagus Hypertension Insomnia Restless leg syndrome Hypothyroid Anemia History of celiac disease History of hemorrhoids Home Medications ?Medication ?Instructions ?Recorded ?Last Taken ?Type pramipexole 1.5 mg tablet 3 mg PO QHS RLS 11/27/13 Unknown History duloxetine 20 mg capsule,delayed 30 mg PO DAILY 09/08/16 Unknown History release folic acid 1 mg tablet 1 mg PO DAILY@0800 90 days #90 tabs 09/30/17 Unknown Rx chlorthalidone 25 mg tablet 25 mg PO DAILY 11/03/18 Unknown History cyanocobalamin (vitamin B-12) 1,000 mcg PO DAILY 11/03/18 Unknown History 1,000 mcg tablet ferrous gluconate 324 mg (37.5 mg 324 mg PO DAILY 11/03/18 Unknown History iron) tablet lisinopril 20 mg tablet 20 mg PO DAILY 11/03/18 Unknown History metoprolol succinate 50 mg capsule 50 mg PO DAILY 11/03/18 Unknown History sprinkle, ext. release 24 hr levothyroxine 300 mcg tablet 300 mcg PO DAILY 06/15/24 Unknown History Allergy/AdvReac Type Severity Reaction Status Date / Time No Known Allergies Allergy Verified 06/19/24 08:45 Family History Mother Hypertension Heart disease Father Prostate cancer Heart disease Surgical History History of esophagogastroduodenoscopy (EGD) Hx of colonoscopy Social History household members: spouse current occupational status: retired Smoking Status: Former smoker alcohol intake: current alcohol intake frequency: holidays/special occasions only Alcohol type: beer substance use type: does not use Review of Systems (Anesthesia) ROS Narrative System reviewed and no additional complaints, except as documented.
--- NOTE | 2024-06-19 09:45 | EGD_PTH ---
PATIENT: REFUGIO OCAMPO LOC: EN U#:[id number] AGE/SX: 68/M ROOM: RE06/19/[address]: Dr. Kate Del Angel MD : 1955 BED: DIS: 06/19/2024 SPEC #: [id number] RECD: 06/19/24 14:20 STATUS: IRINA RERandolph #: [id number] TERRANCE: 06/19/24 09:[address]: Kate Del Angel DEPT: SURGICAL PATHOLOGY RECD BY: Emeli Osorio ENTERED: 06/20/24 10:45 SP TYPE: EGD BIOPSY OT DR: Dr. Newton Lanza, DO Tissues: A - Gastric mucous membrane B - Esophagus, NOS Procedures: Special Stain Group I Surgery Specimen Level IV Alcian Blue/PAS (control) HEADER OPERATION: EGD with biopsy PRE-OP DIAGNOSIS: Diaz's esophagus TISSUE SUBMITTED: A- Antrum biopsy, B- Gastroesophageal junction biopsy MICROSCOPIC DIAGNOSIS A. Antrum, biopsy: 1. Oxyntic Mucosa 2. An immunohistochemical stain for h. pylori with appropriate controls is negative for organisms 3. No intestinal metaplasia, ulceration, gastritis, polyps, or dysplasia B. Gastroesophageal junction, biopsy: 1. Oxyntic Mucosa 2. No Squamous mucosa or epithelium 3. Very rare goblet cells seen on Alcian Blue/PAS stain with appropriate controls 4. No Dysplasia (See Comment) DEBBIE, 06/23/2024 COMMENT A. The results of immunohistochemistry for Helicobacter pylori will be reported separately ([id number]). B. Alcian blue/PAS stain with matched control is used in the evaluation of the specimen. Immunohistochemistry ([id number]) for P53 and Ki-67 are performed with appropriate controls. P53 is negative; ki-67 shows a very low level of proliferation. The results will also be reported separately. MICROSCOPIC DESCRIPTION Slides are reviewed. GROSS DESCRIPTION A. Received in fixative is one container labeled with the patient's name and designated Antrum biopsy. The specimen consists of one irregular fragment of light hopson soft tissue that measures 0.7 x 0.25 x 0.1 cm. The specimen is totally submitted in one cassette. B. Received in fixative is one container labeled with the patient's name and designated GE junction biopsy. The specimen consists of multiple irregular fragments of light hopson soft tissue that in aggregate measure 1.5 x 0.5 x 0.1 cm. The specimen is totally submitted in one cassette. [email or web address] 06/20/2024 TC:4 CPT:63518s2,20915
--- NOTE | 2024-06-19 09:45 | IMM_PTH ---
PATIENT: REFUGIO OCAMPO LOC: EN U#:[id number] AGE/SX: 68/M ROOM: RE06/19/[address]: Dr. Kate Del Angel MD : 1955 BED: DIS: 06/19/2024 SPEC #: [id number] RECD: 06/20/24 11:52 STATUS: IRINA REQ #: [id number] TERRANCE: 06/19/24 09:[address]: Kate Del Angel DEPT: IMMUNOHISTOCHEMISTRY RECD BY: Julian Vidal ENTERED: 06/20/24 11:52 SP TYPE: IMMUNO OTHR DR: Dr. Newton Lanza DO Tissues: A - Gastric mucous membrane B - Esophagus, NOS Procedures: H Pylori (initial) P53 (initial) KI-67 (add) PHYSICIAN & INSTITUTION [place] [id number] SPECIMEN INFORMATION: Tissue Source: A- Antrum biopsy, B- Gastroesophageal junction biopsy Clinical Info: Diaz's esophagus Specimen Number: [id number] A, B CPT code: 66296p2,76009 METHODOLOGY: Deparaffinized sections of prefer/formalin-fixed tissue or PAP/DQ stained slides are incubated with monoclonal/polyclonal antibodies/oligonucleotide probes. Localization is made via biotin free immunoperoxidase method. Appropriate controls are performed and reacted as expected. Results on target cell population are indicated in the following table: RESULTS: ANTIBODY / CLONE RESULT Block A H Pylori (polyclonal) Negative for H. pylori organisms Block B P53 (DO-7) Negative Ki-67 (30-9) Very low expression of Ki-67 These tests were developed and their performance characteristics determined by [facility]. They may not have been cleared or approved by the U.S. Food and Drug Administration. The FDA has determined that such clearance or approval is not necessary. The above immunohistochemical/dual REMEDIOS markers are ordered and reviewed by the Pathologist. INTERPRETATION: A. Antrum, biopsy: An immunohistochemical stain with appropriate controls for H. pylori is negative for organisms. B. Gastroesophageal junction, biopsy: An immunohistochemical stain with appropriate controls for p53 is negative. An immunohistochemical stain with appropriate controls for Ki-67 shows a very low level of expression. DEBBIE, 06/23/2024
--- NOTE | 2024-06-19 10:21 | OP.EGD_ITS ---
Patient Name: Jeffrey Menjivar Procedure Date: 06/19/2024 9:57 AM Date of : 1955 Age: 68 Procedure: Upper GI endoscopy Indications: Diaz's esophagus, Follow-up of Diaz's esophagus Providers: Kate Del Angel MD Referring MD: Newton Lanza Medicines: Monitored Anesthesia Care Patient Profile: This is a 68 year old male. Complications: No immediate complications. Procedure: Pre-Anesthesia Assessment: - Prior to the procedure, a History and Physical was performed, and patient medications and allergies were reviewed. The patient's tolerance of previous anesthesia was also reviewed. The risks and benefits of the procedure and the sedation options and risks were discussed with the patient. All questions were answered, and informed consent was obtained. Prior Anticoagulants: The patient has taken no anticoagulant or antiplatelet agents. ASA Grade Assessment: Per anesthesia. After reviewing the risks and benefits, the patient was deemed in satisfactory condition to undergo the procedure. After obtaining informed consent, the endoscope was passed under direct vision. Throughout the procedure, the patient's blood pressure, pulse, and oxygen saturations were monitored continuously. The gastroscope was introduced through the mouth, and advanced to the second part of duodenum. The upper GI endoscopy was accomplished without difficulty. The patient tolerated the procedure well. Scope In: 10:06:26 AM Scope Out: 10:12:56 AM Total Procedure Duration Time 0 hours 6 minutes 30 seconds Findings: The Z-line was irregular and was found 40 cm from the incisors. Biopsies were taken with a cold forceps for histology. Patchy moderately erythematous mucosa without bleeding was found in the gastric antrum and in the prepyloric region of the stomach. Biopsies were taken with a cold forceps for histology. Biopsies were taken with a cold forceps for Helicobacter pylori cultures. Patchy moderately erythematous mucosa without active bleeding and with no stigmata of bleeding was found in the duodenal bulb. No gross lesions were noted in the first portion of the duodenum and in the second portion of the duodenum. Impression: - Z-line irregular, 40 cm from the incisors. Biopsied. - Erythematous mucosa in the antrum and prepyloric region of the stomach. Biopsied. - Erythematous duodenopathy. - No gross lesions in the first portion of the duodenum and in the second portion of the duodenum. Recommendation: - Await pathology results. - Discharge patient to home. - Resume previous diet. - Continue present medications. - Use Prilosec (omeprazole) 40 mg PO daily. - Use sucralfate tablets 1 gram PO QID for 1 week. Procedure Code(s): --- Professional --- 42572, PT, Esophagogastroduodenoscopy, flexible, transoral; with biopsy, single or multiple Diagnosis Code(s): --- Professional --- K22.89, Other specified disease of esophagus K31.89, Other diseases of stomach and duodenum K22.70, Diaz's esophagus without dysplasia CPT copyright 2021 [employer]. All rights reserved. The codes documented in this report are preliminary and upon coater slate review may be revised to meet current compliance requirements. MD Kate Martin MD 06/19/2024 10:21:18 AM This report has been signed electronically. Number of Addenda: 0 Note Initiated On: 06/19/2024 9:57 AM
--- NOTE | 2024-06-19 10:21 | OP.CCLET_ITS ---
06/19/2024 Newton Lanza [address] [facility] [place] [address] Re : Upper GI endoscopy procedure for Jeffrey Mezabaugh Dear Dr. Lanza This procedure was performed on Wednesday, June 19, 2024. My impressions and recommendations are as follows: Impressions : - Z-line irregular, 40 cm from the incisors. Biopsied. - Erythematous mucosa in the antrum and prepyloric region of the stomach. Biopsied. - Erythematous duodenopathy. - No gross lesions in the first portion of the duodenum and in the second portion of the duodenum. Recommendations : - Await pathology results. - Discharge patient to home. - Resume previous diet. - Continue present medications. - Use Prilosec (omeprazole) 40 mg PO daily. - Use sucralfate tablets 1 gram PO QID for 1 week. My findings are described in the full procedure note, which is enclosed. If I can be of further assistance, please feel free to contact me at Doctor phone number(s): , Work: . Sincerely, MD Kate Martin MD 06/19/2024 10:21:18 AM This report has been signed electronically.
--- NOTE | 2024-06-19 10:27 | PCM.POST.ANE ---
Anesthesia: Postop Eval I Current Vital Signs Temperature: 98 F Pulse Rate: 61 Blood Pressure: 118/75 Respiratory Rate: 16 Pulse Ox: 96 Oxygen Delivery Method: Room Air Assessment Airway patent: Yes Spontaneous unlabored respirations: Yes Mental status: Awake and Calm nausea: No Vomiting: No Anesthesia Complication: No Fluid Hydration Crystalloid volume administer (ml): 30 Total IV fluid infused: 30 Progress Note Anesthesia document: Postop Eval 1 completed: Yes
--- NOTE | 2024-06-19 10:44 | PCM.POSTANE2 ---
Anesthesia Postop Eval I Sum Postop Eval Completion status Anesthesia document: Postop Eval 1 completed: Yes Anesthesia Postop Eval I Summary Anesthesia Postop Eval I Summary: Anesthesia Postop Eval I: Assessment Summary Airway patent Yes 06/19/24 10:28 [email or web address] Spontaneous unlabored Yes 06/19/24 10:28 [email or web address] respirations Mental status Awake,Calm 06/19/24 10:28 [email or web address] nausea No 06/19/24 10:28 [email or web address] Vomiting No 06/19/24 10:28 [email or web address] Anesthesia Postop Eval I: Fluid Summary Crystalloid volume administer 30 06/19/24 10:28 [email or web address] (ml) Colloids volume administered ( ml) Blood Product volume administered (ml) Total IV fluid infused 30 06/19/24 10:28 [email or web address] Anesthesia Postop Eval I: Summary Notes Anesthesia Complication No 06/19/24 10:28 [email or web address] Anesthesia Complication Comment: Post-operative progress note Anesthesia: Postop Eval II Evaluation Mental status: Awake Pain Level: 0 nausea: No Vomiting: No
== END 2024-06-19 11:05 | disposition home or self-care (01) ==
LOC: EN 08:26 → AC 08:27
PROVIDERS: PCP Family Medicine; Referring Provider Family Medicine; Visit Provider Surgery
PROC: 0DJ08ZZ Inspection of Upper Intestinal Tract, Via Natural or Artificial Opening Endoscopic (ICD-10-PCS; CPT 43235; principal; 2024-06-19 09:40)
DX: K22.710 Barrett's esophagus with low grade dysplasia (principal); I10 Essential (primary) hypertension; E03.9 Hypothyroidism, unspecified; Z87.891 Personal history of nicotine dependence; Z79.890 Hormone replacement therapy; Z79.899 Other long term (current) drug therapy
CPT/HCPCS: 43239; 88305; 88312; 88341; 88342; A4216; J2405

== ENCOUNTER → 2024-09-04 | Outpatient (CLI) | payer MEDICARE, BC, SELFPAY ==
[2024-09-04 12:41] LABS: Color, Urine Yellow (Yellow); Glucose, Dipstick Normal (Normal); Ketone-Dipstick Negative (Negative); Leukocyte Esterase-Dipstick Negative /ul (Negative); Nitrite-Dipstick Negative (Negative); Occult Blood-Urine Negative /ul (Negative); Protein-Dipstick 15 mg/dl (Negative); Urine Bilirubin Dipstick Negative (Negative); Urine Clarity Clear (Clear); Urine Urobilinogen Normal (Normal)
[2024-09-04 23:42] LABS: Anion Gap 11 (5-15); BUN 18 mg/dL (4-19); BUN/Creat Ratio 18.5 RATIO (10-20); Calcium,Total 8.5 mg/dL (7.6-11.0); Carbon Dioxide 23.4 mmol/L (21.0-32.0); Chloride 103 mmol/L (98-108); Creatinine, Serum 0.97 mg/dL (0.70-1.20); EST Glomerular Filtration Rate 85 (>60); Glucose 86 mg/dL (70-99); Potassium 4.2 mmol/L (3.3-5.1); Sodium Level 138 mmol/L (133-145)
== END | disposition home or self-care (01) ==
LOC: BFHLAB 10:07
PROVIDERS: PCP Family Medicine; Visit Provider Family Medicine
DX: I10 Essential (primary) hypertension (principal); E03.9 Hypothyroidism, unspecified; R10.9 Unspecified abdominal pain
CPT/HCPCS: 36415; 80048; 81002; 84443

== ENCOUNTER → 2024-09-09 | Outpatient (CLI) | payer MEDICARE, BC, SELFPAY ==
--- NOTE | 2024-09-09 11:06 | US_ITS ---
PROCEDURE: KIDNEY AND BLADDER 09/09/2024 REASON FOR EXAM: RIGHT FLANK PAIN TECHNIQUE: Bilateral renal ultrasound. COMPARISON: None. FINDINGS: Kidneys: Normal size and contour. Right kidney measures 10.9 by 5.6 x 5.1 cm. Cortical thickness is 1.4 cm. Left kidney measures 10.9 x 5.2 x 5.8 cm left cortical thickness is 1.5 cm no calculi identified either kidney [place]: No hydronephrosis. Cysts or Masses: No cysts or solid masses Other: Urinary bladder appears normal. Prevoid urinary bladder volume is 252.5 mL bilateral ureteral jets are present. US/Kidney and Bladder IMPRESSION: No acute process is identified. [facility]
== END | disposition home or self-care (01) ==
LOC: US 11:05
PROVIDERS: PCP Family Medicine; Referring Provider Family Medicine; Visit Provider Family Medicine
DX: M54.9 Dorsalgia, unspecified (principal)
CPT/HCPCS: 76770

== ENCOUNTER → 2025-02-07 | Outpatient (CLI) | payer MEDICARE, SELFPAY ==
--- NOTE | 2025-02-07 10:30 | LES_PTH ---
PATIENT: REFUGIO OCAMPO [id number] AGE/SX: 69/M ROOM: RE02/07/[address]: Dr. Newton Lanza DO : 1955 BED: DIS: 02/07/2025 SPEC #: [id number] RECD: 02/07/25 12:15 STATUS: IRINA LAMAR #: [id number] TERRANCE: 02/07/25 10:[address]: Newton Lanza DEPT: SURGICAL PATHOLOGY RECD BY: Julian Vidal Tissues: A - Skin of face, NOS Procedures: Surgery Specimen Level IV HEADER OPERATION: Punch biopsy of left rastafarian PRE-OP DIAGNOSIS: Nevus, dark, rule out melanoma TISSUE SUBMITTED: A- 2mm punch left rastafarian MICROSCOPIC DIAGNOSIS A. Skin, left rastafarian, punch biopsy: - Pigmented seborrheic keratosis (deeper sections examined) - see note. Note: If this biopsy includes only a portion of a larger lesion the histologic findings may not be billing representative. Clinical correlation is necessary. MICROSCOPIC DESCRIPTION Slides are reviewed. GROSS DESCRIPTION A. Received in formalin labeled with the patient's name and date of . Designated as punch BX-left rastafarian is a 0.2 x 0.1 cm hopson to light brown skin punch excised to a maximal depth of 0.3 cm. The resection margin is inked black. Entirely submitted in 1 cassette. [place] 02/07/2025 CPT:02814
== END | disposition home or self-care (01) ==
LOC: LABSPEC 10:48
PROVIDERS: PCP Family Medicine; Visit Provider Family Medicine
DX: L82.1 Other seborrheic keratosis (principal)
CPT/HCPCS: 88305

== ENCOUNTER → 2025-05-25 | Outpatient (CLI) | payer MEDICARE, OTHER, SELFPAY ==
[2025-05-25 15:13] LABS: Hematocrit 40.1 % (40-54); Hemoglobin 13.5 g/dL (13.0-16.5); Immature Granulocytes Count 0.010 X10^3/uL (0.0-0.0); Mean Corp Hgb Conc 33.7 g/dL (32-36); Mean Corpuscular Volume 95.9 fL (80-94); Mean Platelet Vol. 9.5 fl (6.2-12.0); NRBC Flagged by Analyzer 0 % (0-5); Platelet Count 311 K/mm3 (150-450); RBC Distribution Width CV 13.2 % (11.6-14.6); RBC Distribution Width SD 46.8 fl (35.1-43.9); Red Blood Count 4.18 M/mm3 (4.6-6.2); White Blood Count 4.6 K/mm3 (4.4-11.0)
[2025-05-25 15:45] LABS: AST(SGOT) 34 U/L (<=37); Alanine Aminotransfer ALT/SGPT 31 U/L (<=46); Albumin, Serum 4.1 g/dL (3.4-4.8); Alkaline Phosphatase 73 U/L (40-129); Anion Gap 10 (5-15); BUN 20 mg/dL (4-19); BUN/Creat Ratio 18.9 RATIO (10-20); Calcium,Total 8.8 mg/dL (7.6-11.0); Carbon Dioxide 24.1 mmol/L (21.0-32.0); Chloride 102 mmol/L (98-108); Cholesterol 170 mg/dL (<=200); Globulin 3.0 g/dL (2.2-4.2); Glucose 114 mg/dL (70-99); Low Density Lipoprotein Calc. 105 mg/dL; Potassium 3.9 mmol/L (3.3-5.1); Triglycerides 159 mg/dL; Very Low Density Lipoprotein 32 mg/dL (5-40); cholesterol:hdl ratio screen 4.66
[2025-05-25 16:13] LABS: Iron 110 ug/dL (65-175)
[2025-05-25 16:14] LABS: Ferritin 114 ng/mL (37-417); PSA,Total - Annual Screen 4.54 ng/mL (0.02-4.00)
== END | disposition home or self-care (01) ==
PROVIDERS: PCP Family Medicine; Visit Provider Family Medicine
DX: Z12.5 Encounter for screening for malignant neoplasm of prostate (principal); I10 Essential (primary) hypertension; D50.9 Iron deficiency anemia, unspecified; E03.9 Hypothyroidism, unspecified
CPT/HCPCS: 36415; 80053; 80061; 82728; 83540; 84153; 84443; 85025; G0103